=== PATIENT | female | born 1930 | race Caucasian/White ===

== ENCOUNTER 2016-08-26 13:50 | Emergency (ER) | payer MEDICARE ==
[2016-08-26] MEDS ORDERED: FUROSEMIDE 40 MG/4 ML VIAL ONE (14:38)
[2016-08-26] MEDS ORDERED: ALBUTEROL/IPRATROPIUM 2.5/0.5 MG 3 ML/EACH DOSE ONE (14:43)
[2016-08-26 14:46] LABS: ABSOLUTE NEUTROPHIL COUNT 9.3 K/mm3 (1.8-7.7); BASO # 0.1 K/mm3 (0.0-0.2); BASO % 0.6 % (0.2-1.0); EOS # 0.2 (0.0-0.5); EOS % 1.4 % (0.9-2.9); HEMATOCRIT 35.7 % (37.0-47.0); HEMOGLOBIN 11.7 gm/l (12.0-16.0); IMM NEUT # 0.1 K/mm3 (0-0.2); IMM NEUT% 0.4 % (0-1); LYMPH % 8.2 % (15-45); MEAN CELL VOLUME 87.7 fl (81.0-99.0); MEAN CORPUSCULAR HEMOGLOBIN 28.7 pg (27.0-31.0); MEAN CORPUSCULAR HGB CONC 32.8 g/dl (33.0-37.0); MEAN PLATELET VOLUME 9.4 fl (7.4-10.4); MONO # 1.3 (0.0-0.8); MONO % 10.6 % (4-12); NEUT % 78.8 % (43-75); PLATELET COUNT 228 K/mm3 (130-400); RED CELL DISTRIBUTION WIDTH 13.7 % (11.5-14.5)
[2016-08-26 14:54] LABS: ALB/GLOB RATIO 1.2 (>1.0); ALBUMIN 4.3 gm/dL (3.5-5.7); CALCIUM 9.5 mg/dL (8.6-10.3)
[2016-08-26 14:56] LABS: TROPONIN I 0.03 ng/ml (0.0-0.06)
[2016-08-26 15:00] LABS: CKMB ISOENZYME 2.9 ng/ml (0.6-6.3)
--- NOTE | 2016-08-26 15:10 | RAD ---
Exam: Two-view chest COMPARISON: 01/02/2016 and 04/03/2014 INDICATION: Shortness of breath. FINDINGS: PA and lateral views of the chest were obtained. 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 Cardiomegaly is similar. 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 There is chronic coarsening of the bronchovascular markings and hyperinflation reflecting underlying obstructive airways disease. There is no pulmonary edema, focal airspace disease or pleural effusion. IMPRESSION: No acute pulmonary process.
[2016-08-26 16:39] LABS: SPECIFIC GRAVITY 1.015 (1.001-1.030); URINE BILIRUBIN NEGATIVE (NEGATIVE); URINE BLOOD NEGATIVE (NEGATIVE); URINE GLUCOSE (UA) NEGATIVE (NEGATIVE); URINE LEUKOCYTE ESTERASE NEGATIVE (NEGATIVE); URINE NITRITE NEGATIVE (NEGATIVE); URINE PROTEIN NEGATIVE (NEGATIVE); URINE UROBILINOGEN NORMAL (0-1 mg/dl)
[2016-08-26 16:46] LABS: URINE APPEARANCE CLEAR; URINE COLOR YELLOW
== END 2016-08-26 17:04 | disposition home or self-care (01) ==
LOC: ED 13:50 → SUPCPDRO 13:50 → ED 17:04
DX: I50.9 Heart failure, unspecified (principal); E87.1 Hypo-osmolality and hyponatremia; I10 Essential (primary) hypertension; I48.91 Unspecified atrial fibrillation
CPT/HCPCS: 83880; 85025; 82550; 82553; 80053; 81003; 84484; 71020; 94640; 99284 ×2; 96374; 93005; J1940